=== PATIENT | female | born 1985 | race Caucasian/White ===

== ENCOUNTER → 2018-08-15 | Outpatient (CLI) | payer OTHER ==
[~2018-08-15] MED LIST: ISOVUE-370 76% 100ML VIAL (Q9967) As Ordered ONE
--- NOTE | 2018-08-15 17:55 | REP ---
HYSTEROSALPINGOGRAM: 08/15/2018. Clinical history: Status post tubal ligation for a tubal reanastomosis/reversal. Please measure tube length proximally. Findings: There are no prior studies. Endocervical cannulation by Dr. Ortega of the gynecology division was performed. Initial image shows an IUD in place with contrast filling the endometrial cavity. There was prompt bilateral filling of the interstitial and isthmic portions of both tubes to the ampullary segments. Dilated/clubbed distal ampullary segments are noted. Full length of the interstitial and isthmic portions of the tubes were noted. This represents a few centimeters at least. Findings were discussed with the attending pharmacometrician. Fluoroscopy time 0.5 minutes. Electronically Signed by Donovan Basurto MD 08/16/2018 11:28 A
== END ==
LOC: M RADPRO 12:15
PROVIDERS: ATTEND Obstetrics & Gynecology
DX: Z98.51 Tubal ligation status (principal)
CPT/HCPCS: 58340; 74740; Q9967

== ENCOUNTER → 2020-08-15 | Outpatient (CLI) | payer OTHER ==
--- NOTE | 2020-08-15 11:25 | REP ---
INDICATION: VERONIKA DIAG MAMMO/LEFT BREAST PAIN; LEFT BREAST PAIN. Focal left breast pain 6 to 9 o'clock position 3 months duration. COMPARISON: no comparison breast imaging. TECHNIQUE: Bilateral CC and MLO) view(s) were taken. Routine views of the left breast are augmented by 3D tomography. Magnified focal spot-compression images are obtained in the left breast in the area of the patient's focal pain. A skin marker is affixed to the skin at the site of the pain. Targeted left breast sonography is carried out. FINDINGS: Breast parenchyma is heterogeneously dense in a pattern which may inhibit the sensitivity mammography. There is a benign 7 x 3 mm fat containing intramammary lymph node in the upper outer quadrant on the right. No suspicious mass is seen in either breast. No microcalcification or worrisome skin changes seen. Breast parenchyma is normal in the area of the skin marker affixed to the skin at the site of the focal breast pain. No suspicious mammographic abnormality. The Volpara volumetric breast density pattern is C. Targeted left breast sonography findings: Scanning is performed in the area of pain at the approximately 7 o'clock position of the left breast. Mildly heterogeneous PET fibroglandular background echotexture is seen. No cyst is seen. No mass or architectural distortion is seen. No abnormal shadowing. No suspicious ultrasound finding.. IMPRESSION: BIRADS/ACR category 2 benign mammographic and targeted left breast sonographic findings. This patient's Tyrer-Cuzick lifetime breast cancer risk assessment score is 10.3%. This mammogram was interpreted with the aid of an FDA-approved computer-aided detection system. The patient states she had a clinical breast exam in July 26, 2020.. The patient letter being requested is M2. RECOMMENDATION: Clinical follow-up is advised. Bilateral screening mammography recommended for annually at age 40.. <Electronically signed by Tan Watkins > 08/15/20 [id number]
== END ==
LOC: M WHC 08:22
PROVIDERS: ATTEND Nurse Practitioner Primary Care
DX: N64.4 Mastodynia (principal)
CPT/HCPCS: 76642; 77066; G0279